=== PATIENT | female | born 1975 | race Hispanic/Latino ===

== ENCOUNTER 2022-09-13 15:51 | Emergency (ER) | payer OTHER, SELFPAY ==
--- NOTE | ~2022-09-13 | XR_ITS ---
EXAMINATION: XR chest 2V 09/13/2022 16:24 INDICATION: Chest pain PROCEDURE: 2 view chest COMPARISON: No prior studies for comparison. FINDINGS: The lungs are clear. The cardiomediastinal silhouette is within normal limits. There are no pleural effusions. There is no pneumothorax suspected. There is prominent left nipple shadow. IMPRESSION: 1: NO ACUTE CARDIOPULMONARY DISEASE. Reviewed, dictated and finalized at location A.
[2022-09-13 15:54] VITALS: BP 115/74; PULSE 88; RESP 16; TEMP 36.3; O2SAT 100
--- NOTE | 2022-09-13 15:58 | ECG_ITS ---
Measurements Intervals [place] Rate: 80 P: 70 [place]: 149 QRS: 66 QRSD: 88 T: 64 QT: 340 QTc: 394 Interpretive Statements SINUS RHYTHM NONSPECIFIC ST SEGMENT ABNORMALITY BORDERLINE ECG NO PREVIOUS ECG AVAILABLE FOR COMPARISON Electronically Signed On 09-14-2022 15:34:35 CDT by Antonio Bello M.D.
[2022-09-13 16:10] LABS: Basophils Absolute Auto 0.1 K/mm3 (0.0-0.1); Basophils Percent Auto 0.7 % (0.2-1.2); Eosinophils Absolute Auto 0.1 K/mm3 (0-0.3); Hematocrit 45.5 % (37.0-47.0); Immature Granulocyte Absolute 0.02 K/mm3 (0.00-0.031); Immature Granulocyte Percent A 0.2 % (0-0.5); Lymphocytes Absolute Auto 2.37 K/mm3 (0.9-3.2); Lymphocytes Percent Auto 28.3 % (18.3-44.2); Mean Platelet Volume 9.7 fl (7.4-10.4); Monocytes Absolute Auto 0.6 K/mm3 (0.1-0.6); Monocytes Percent Auto 7.3 % (2.6-8.5); Neutrophils Absolute Auto 5.2 K/mm3 (1.3-6.7); Neutrophils Percent Auto 62.5 % (45.5-73.1); Platelet Count Result 231 k/mm3 (150-375); Red Blood Count 5.35 M/mm3 (4.2-5.4); White Blood Count 8.4 K/mm3 (4.5-10.0)
--- NOTE | 2022-09-13 16:15 | PC.NURSE ---
pt taken to room 7 via wheelchair per edp request
[2022-09-13 16:20] LABS: INR 0.9; Prothrombin Time 12.7 Seconds (11.1-14.7)
[2022-09-13 16:21] LABS: Partial Thromboplastin Time 26.5 SECONDS (22.3-36.8)
--- NOTE | 2022-09-13 16:24 | ED.GENADULT ---
HPI - General Adult General Chief complaint: Nausea/Vomiting/Diarrhea Stated complaint: vomiting Time Seen by Provider: 09/13/22 16:15 History of Present Illness HPI narrative: 47-year-old female presented the emergency department for evaluation of nausea vomiting diarrhea and some chest pressure. Patient reports she was having the nausea and vomiting when she woke up this morning and then approximately 2 PM began having the substernal chest pressure. Patient states the pain does not radiate to her neck back or arms. Patient has no prior history of [place]. Patient reports does have a prior history of anemia but did have a hysterectomy and patient denies any current bleeding. Related Data Allergies Allergy/AdvReac Type Severity Reaction Status Date / Time aspirin Allergy Unknown Verified 09/13/22 16:31 Review of Systems Review of Systems: All systems reviewed & are unremarkable except as noted in HPI and below Exam Narrative: APPEARANCE: Well appearing, no pain, no distress, well-nourished. HEAD: normocephalic, atraumatic. EYES: PERRLA/EOMI, conjunctivae clear. NOSE: Normal no drainage EARS:TMS clear with good light reflex. THROAT: Pharynx clear, no exudate. NECK: Supple. No adenopathy, no masses. RESPIRATORY: Airway patent, respirations nonlabored. Clear to auscultation bilaterally, no rales, rhonchi, wheezing. CARDIOVASCULAR: Regular rate and rhythm without murmurs rubs or gallops. ABDOMINAL: Soft, nontender, nondistended, normal bowel sounds MUSCULOSKELETAL: Moves all extremities. Strength/ROM intact, No edema, No calf tenderness. NEURO: Alert. Cranial nerves II through XII intact. Grossly intact SKIN: Warm, dry. Normal Color Course Course Emergency Course: 47-year-old female presented to ED for evaluation of nausea vomiting diarrhea and some epigastric chest pain. On arrival patient is EKG did show some nonspecific ST changes. Patient was treated with nitro and had no significant change in her symptoms but did report onset of headache. Repeat EKG showed no change in the patient's EKG. Cardiology was consulted and they felt even though there were ST depressions patient was not likely a STEMI due to the EKG and the patient's symptoms. Patient initial troponin was negative. Patient and family were updated on the results of the work-up and ST changes. Patient did feel improved with rehydration regarding her nausea vomiting diarrhea symptoms. Patient was offered admission for further cardiac work-up but patient declined. Patient was willing to stay for a repeat troponin. Patient had a negative serial troponin. Vital Signs Vital signs: Vital Signs Temperature 97.3 F L 09/13/22 15:54 Pulse Rate 88 09/13/22 15:54 Respiratory Rate 16 09/13/22 15:54 Blood Pressure 115/74 09/13/22 15:54 Pulse Oximetry 100 09/13/22 15:54 Oxygen Delivery Room Air 09/13/22 15:54 Temperature 97.3 F L 09/13/22 15:54 Pulse Rate 68 09/13/22 19:57 Respiratory Rate 17 09/13/22 19:57 Blood Pressure 104/85 09/13/22 19:57 Pulse Oximetry 99 09/13/22 19:57 Oxygen Delivery Room Air 09/13/22 15:54 Medical Decision Making Differential Diagnosis Differential Diagnosis: Gastroenteritis, ACS Vital Signs Vital Signs: Vital Signs Temperature 97.3 F L 09/13/22 15:54 Pulse Rate 88 09/13/22 15:54 Respiratory Rate 16 09/13/22 15:54 Blood Pressure 115/74 09/13/22 15:54 Pulse Oximetry 100 09/13/22 15:54 Oxygen Delivery Room Air 09/13/22 15:54 Temperature 97.3 F L 09/13/22 15:54 Pulse Rate 68 09/13/22 19:57 Respiratory Rate 17 09/13/22 19:57 Blood Pressure 104/85 09/13/22 19:57 Pulse Oximetry 99 09/13/22 19:57 Oxygen Delivery Room Air 09/13/22 15:54 Lab Data Lab results reviewed: Yes I reviewed the patient's lab results. 09/13/22 16:05 09/13/22 16:05 Labs: Lab Results 09/13/22 09/13/22 09/13/22 Range/Units 16:05 19:09 1
[2022-09-13] MEDS: SODIUM CHLORIDE 0.9% IV 1,000 ML 999 ML IV CONT ×2 (16:37→18:37)
[2022-09-13 16:44] VITALS: BP 116/62; PULSE 68; RESP 16; O2SAT 100
[2022-09-13 16:44] LABS: Alanine Aminotransferase 32 U/L (6-35); Albumin Level 4.7 g/dL (3.5-5.1); Alkaline Phosphatase 96 U/L (38-126); Anion Gap 4 mmol/L (8-16); Aspartate Amino Transferase 27 U/L (14-36); Bilirubin,Total 0.6 mg/dL (0.2-1.3); Blood Urea Nitrogen 8 mg/dL (7-17); Carbon Dioxide 31 mmol/L (22-30); Chloride 101 mmol/L (98-107); Estimated CRCL calculation 100 ml/min; Estimated Glomerular Filt Rate > 60; Glucose 102 mg/dL (65-110); Lipase 87 U/L (23-300); Potassium 4.1 mmol/L (3.4-5.0); Sodium 136 mmol/L (137-145)
[2022-09-13] MEDS: NITROGLYCERIN SL 0.4 MG TABLET SUBLINGUAL (16:44)
--- NOTE | 2022-09-13 16:50 | ECG_ITS ---
Measurements Intervals [place] Rate: 69 P: 51 [place]: 158 QRS: 65 QRSD: 98 T: 61 QT: 361 QTc: 387 Interpretive Statements SINUS RHYTHM NONSPECIFIC ST SEGMENT ABNORMALITY BORDERLINE eCG COMPARED TO ECG 09/13/2022 16:09:04 NO SIGNIFICANT CHANGES Electronically Signed On 09-14-2022 15:40:50 CDT by Antonio Bello M.D.
--- NOTE | 2022-09-13 16:53 | PC.NURSE ---
second nitro given per verbal order from dr Chiu
--- NOTE | 2022-09-13 16:55 | PC.NURSE ---
patient refused second nitro. patient states her pain has gotten better after the first and she now has a headache. provider made aware
[2022-09-13 17:10] VITALS: BP 113/61; PULSE 76; RESP 17; O2SAT 100
[2022-09-13 17:12] LABS: Troponin I < 0.012 ng/mL (0.000-0.034)
[2022-09-13] MEDS: ONDANSETRON INJ 4 MG/2 ML VIAL IV PUSH (18:38)
[2022-09-13 18:55] VITALS: BP 111/64; PULSE 75; RESP 13; O2SAT 100
[2022-09-13 19:29] LABS: Appearance Urine Clear (Clear); Bacteria Urine Rare /hpf; Bilirubin Urine Negative (Negative); Blood Urine Negative (Negative); Color Urine Yellow (Yellow); Glucose Urine UA Negative (Negative); Ketones Urine 1+ mg/dL (Negative); Leukocyte Esterase Ur Trace LEU/UL (Negative); Nitrate Urine Negative (Negative); Non Pathogenic Casts 0-2; Protein Urine Negative (Negative); RBC Urine 0-2 /hpf (0-2); Specific Grav Ur 1.011 (1.001-1.035); Squamous Epithelial Cell Urine Few /hpf (Few); Urobilinogen Urine 0.2 mg/dL (<2.0); WBC Urine 0-5 /hpf; pH Urine 7.5 (5.0-9.0)
[2022-09-13 19:31] LABS: Add Urine Microscopic? YES
[2022-09-13 19:40] LABS: Troponin I < 0.012 ng/mL (0.000-0.034)
[2022-09-13 19:57] VITALS: BP 104/85; PULSE 68; RESP 17; O2SAT 99
== END 2022-09-13 20:06 | disposition home or self-care (01) ==
PROVIDERS: Emergency Provider Emergency Medicine
DX: R11.2 Nausea with vomiting, unspecified (principal); R19.7 Diarrhea, unspecified; Z86.2 Personal history of diseases of the blood and blood-forming organs and certain disorders involving the immune mechanism; Z90.710 Acquired absence of both cervix and uterus; R94.31 Abnormal electrocardiogram [ECG] [EKG]
CPT/HCPCS: 36415; 71046; 80053; 81001; 81025; 83690; 84484; 85025; 85610; 85730; 93005; 96361; 96374; 99284; A9270; J2405; J7030